=== PATIENT | male | born 1950 | race African-American/Black ===

== ENCOUNTER 2016-09-21 18:58 | Emergency (ER) | payer OTHER ==
[2016-09-21 19:05] VITALS: BP 140/79; PULSE 62; TEMP 97.8; BMI 25.7
--- NOTE | 2016-09-21 19:45 | PDOC ---
History of Present Illness - General Chief Complaint: Laceration Stated Complaint: CUT ON HAND Time Seen by Provider: 09/21/16 19:14 History Source: Patient Exam Limitations: No Limitations - History of Present Illness Initial Comments: 09/21/16 19:42 Was cutting watermelon, slipped and incised the lateral aspect of the left hand. Denies numbness or tingling to fingers, no other injury. Occurred: reports: just prior to arrival, this afternoon Pain Location: reports: upper extremity (left hand) Past History - Travel Traveled outside of the country in the last 30 days: No Close contact w/someone who was outside of country & ill: No - Past Medical History Allergies/Adverse Reactions: Allergies Allergy/AdvReac Type Severity Reaction Status Date / Time No Known Allergies Allergy Verified 09/21/16 19:01 Home Medications: Ambulatory Orders NK [No Known Home Medication] 09/21/16 Anemia: No Asthma: No Cancer: No Cardiac Disorders: No CVA: No COPD: No CHF: No Dementia: No Diabetes: No GI Disorders: No Disorders: No HTN: No Hypercholesterolemia: No Liver Disease: No Seizures: No Thyroid Disease: No - Psycho/Social/Smoking Cessation Hx Anxiety: No Suicidal Ideation: No Smoking Status: No Smoking History: Never smoked Have you smoked in the past 12 months: No Number of Cigarettes Smoked Daily: 0 Information on smoking cessation initiated: No Hx Alcohol Use: No Drug/Substance Use Hx: No Substance Use Type: None Hx Substance Use Treatment: No Trauma Specific PMHX - Complaint Specific PMHX Back Injury: No Neck Injury: No Review of Systems - Review of Systems Able to Perform ROS?: Yes Is the patient limited Urdu proficient: Yes Constitutional: Yes: See HPI. No: Symptoms Reported HEENTM: No: Symptoms Reported Musculoskeletal: Yes: Symptoms Reported, See HPI Integumentary: Yes: Symptoms Reported, See HPI (2 cm laceration to the lateral aspect of left distal hand at the MCP of that digit.). No: Lesions Neurological: No: Symptoms reported All Other Systems: Reviewed and Negative *Physical Exam - Vital Signs Last Vital Signs Temp Pulse Resp BP Pulse Ox 97.8 F 62 18 140/79 98 09/21/16 19:02 09/21/16 19:02 09/21/16 19:02 09/21/16 19:02 09/21/16 19:02 - Physical Exam General Appearance: Yes: Nourished, Appropriately Dressed, Apparent Distress, Mild Distress Neck: negative: Tender Respiratory/Chest: positive: Lungs Clear Extremity: positive: Normal Capillary Refill, Normal Inspection, Normal Range of Motion (2 cm laceration to the lateral aspect of left hand volar aspect/ proximal to the fifth MCP. Has full range of motion of fingers, strong flexion and extension with seventh sensation intact), Tender Integumentary: positive: Normal Color Neurologic: positive: oim consultant II-XII NML intact, Fully Oriented, Alert, Normal Mood/ Affect, Normal Response, Motor Strength 5/5 Procedures - Laceration/Wound Repair Left Hand Wound Length: to 2.5 cm Wound Explored: clean Wound's Depth, Shape: superficial, linear Irrigated w/ Saline: Yes Betadine Prep: Yes Anesthesia: 1% Lidocaine Wound Repaired With: Sutures Suture Size/Type: 5:0 Number of Sutures: 9 Layer Closure: No Sterile Dressing Applied: Yes Progress Note - Progress Note Progress Note: Hand laceration repaired *DC/Admit/Observation/Transfer Diagnosis at time of Disposition: Hand laceration Qualifiers: Encounter type: initial encounter Foreign body presence: unspecified Laterality : left Qualified Code(s): S61.412A - Laceration without foreign body of left hand, initial encounter - Discharge Dispostion Disposition: HOME Condition at time of disposition: Stable Admit: No - Referrals Referrals: Debbi Perkins MD [Primary Care Provider] - - Patient Instructions Printed Discharge Instructions: DI for Laceration Repair Additional Instructions: Rest, elevate, avoid strenuous activity or heavy lifting until sutures are removed Leave dressing on for the next 24 hours, Then may remove dressing gently and wash area with soap and water. Reapply bacitracin ointment and dressing daily for the next 5 days On day #6 keep the wound protected and cover as needed until sutures are removed allowing wound to start to dry May use Tylenol or Motrin for pain relief Suture removal in :10 -12 Days - Post Discharge Activity Work/School Note: Back to Work
== END 2016-09-21 20:14 | disposition home or self-care (01) ==
LOC: JERFT 18:58
PROC: 0HQ1XZZ Repair Face Skin, External Approach (ICD-10-PCS; principal; 2016-09-21)
DX: S61.412A Laceration without foreign body of left hand, initial encounter (principal); W26.0XXA Contact with knife, initial encounter; Y93.G1 Activity, food preparation and clean up; Y92.9 Unspecified place or not applicable
CPT/HCPCS: 99281-25

== ENCOUNTER 2018-09-21 19:39 | Emergency (ER) | payer BC, OTHER ==
[2018-09-21 20:10] VITALS: BP 128/73; PULSE 50; TEMP 97.8; BMI 26.0
--- NOTE | 2018-09-21 20:42 | PDOC ---
History of Present Illness - General Chief Complaint: Pain Stated Complaint: PAIN Time Seen by Provider: 09/21/18 20:27 - History of Present Illness Initial Comments: 09/21/18 20:29 CHIEF COMPLAINT: back pain HISTORY OF PRESENT ILLNESS: 68 yo M with hx of L knee arthroscopy presents to fast track with low back pain radiating to R leg x 1 week. Patient states that the pain is worse when standing. He reports having had pain for a few days last week "but then I stopped sleeping under the air conditioning, and it got a little bit better, but then today I mowed the lawn and afterwards it hurt more again." Denies any loss of bowel or bladder function and is fully ambulatory. No loss of sensation to b/l lower extremities. PAtient denies any urinary symptoms, denies chest pain, sob, abdominal pain. No recent travel or sick contacts. PAST MEDICAL HISTORY: Denies past medical history FAMILY HISTORY: Denies SOCIAL HISTORY: Denies tobacco, alcohol, illicit drug use. SURGICAL HISTORY: Denies ALLERGIES: No known drug allergies REVIEW OF SYSTEMS General/Constitutional: Denies fever or chills. Denies weakness, weight change. HEENT: Denies change in vision. Denies ear pain or discharge. Denies sore throat. Cardiovascular: Denies chest pain or shortness of breath. Respiratory: Denies cough, wheezing, or hemoptysis. Gastrointestinal: Denies nausea, vomiting, diarrhea or constipation. Denies rectal bleeding. Genitourinary: Denies dysuria, frequency, or change in urination. Musculoskeletal: Low back pain radiating to R leg. Denies joint or muscle swelling or pain. Denies neck or back pain. Skin and breasts: Denies rash or easy bruising. Neurologic: Denies headache, vertigo, loss of consciousness, or loss of sensation. PHYSICAL EXAM General Appearance: Well-appearing, appropriately dressed. No apparent distress , no intoxication. HEENT: EOMI, PERRLA, normal ENT inspection, normal voice, TMs normal, pharynx normal. No conjunctival pallor. No photophobia, scleral icterus. Neck: Supple. Trachea midline. No tenderness, rigidity, carotid bruit, stridor , lymphadenopathy, or thyromegaly. Respiratory/Chest: Lungs CTAB. No shortness of breath, chest tenderness, respiratory distress, accessory muscle use. No crackles, rales, rhonchi, stridor , wheezing, dullness Cardiovascular: RRR. S1, S2. No JVD, murmur, bradycardia, tachycardia. Vascular Pulses: Dorsalis-Pedis (R): 2+, Dorsalis-Pedis (L): 2+ Gastrointestinal/Abdominal: Normal bowel sounds. Abdomen soft, non-distended. No tenderness or rebound tenderness. No organomegaly, pulsatile mass, guarding , hernia, hepatomegaly, splenomegaly. Lymphatic: No adenopathy, tenderness. Musculoskeletal/Extremities: Full sensation to b/l lower extremities, no saddle anesthesia. No midline spine tenderness. Patient fully ambulatory. Normal inspection. FROM of all extremities, normal capillary refill. Pelvis Stable. No CVA tenderness. No tenderness to extremities, pedal edema, swelling, erythema or deformity. Integumentary: Appropriate color, dry, warm. No cyanosis, erythema, jaundice or rash Neurologic: acute coordinator II-XII intact. Fully oriented, alert. Appropriate mood/affect. Motor strength 5/5. No appreciable EOM palsy, facial droop or sensory deficit. Past History - Past Medical History Allergies/Adverse Reactions: Allergies Allergy/AdvReac Type Severity Reaction Status Date / Time No Known Allergies Allergy Verified 09/21/16 19:01 Home Medications: Ambulatory Orders Cyclobenzaprine HCl 10 mg PO HS #10 tablet 09/21/18 Anemia: No Asthma: No Cancer: No Cardiac Disorders: No CVA: No COPD: No CHF: No Dementia: No Diabetes: No GI Disorders: No Disorders: No HTN: No Hypercholesterolemia: No Liver Disease: No Seizures: No Thyroid Disease: No - Suicide/Smoking/Psychosocial Hx Smoking Status: No Smoking History: Never smoked Have you smoked in the past 12 months: No Number of Cigarettes Smoked Daily: 0 Hx Alcohol Use: No Drug/Substance Use Hx: No Substance Use Type: None Hx Substance Use Treatment: No Trauma Specific PMHX - Complaint Specific PMHX Back Injury: No Neck Injury: No *Physical Exam - Vital Signs Last Vital Signs Temp Pulse Resp BP Pulse Ox 97.8 F 50 L 20 128/73 100 09/21/18 20:05 09/21/18 20:05 09/21/18 20:05 09/21/18 20:05 09/21/18 20:05 Medical Decision Making - Medical Decision Making 09/21/18 20:42 68 yo M with hx of L knee arthroscopy presents to fast track with low back pain radiating to R leg x 1 week. -cyclobenzaprine po f/u with ortho Advised patient to take medication as prescribed and follow up with ortho within the next week. Advised patient of signs and symptoms for return to ED. Patient verbalized understanding and agrees to plan. *DC/Admit/Observation/Transfer Diagnosis at time of Disposition: Back pain with sciatica - Discharge Dispostion Disposition: HOME Condition at time of disposition: Stable Decision to Admit order: No - Prescriptions Prescriptions: Cyclobenzaprine HCl 10 mg PO HS #10 tablet - Referrals Referrals: Debbi Perkins MD [Primary Care Provider] - Santos Ramachandran DO [Staff Physician] - - Patient Instructions Printed Discharge Instructions: DI for Back Pain With Sciatica - Post Discharge Activity
[2018-09-21] MEDS ORDERED: CYCLOBENZAPRINE HCL 10 MG TABLET (FP) ONE (20:53)
[2018-09-21] MEDS ORDERED: CYCLOBENZAPRINE HCL 10 MG TABLET (FP) PO ONE (20:55)
== END 2018-09-21 20:56 | disposition home or self-care (01) ==
LOC: JERFT 19:39 → JER 19:39 → JERFT 20:56
DX: M54.41 Lumbago with sciatica, right side (principal)
CPT/HCPCS: 99281-25

== ENCOUNTER 2021-06-07 10:24 | Emergency (ER) | payer BC, OTHER ==
[2021-06-07 10:35] VITALS: BP 138/78; PULSE 56; TEMP 97.6; BMI 26.0
[2021-06-07] MEDS ORDERED: KETOROLAC TROMETHAMINE 30 MG/1 ML VIAL IM ONE (11:24)
== END 2021-06-07 12:05 | disposition home or self-care (01) ==
LOC: JERFT 10:24
DX: S61.011A Laceration without foreign body of right thumb without damage to nail, initial encounter (principal); W26.8XXA Contact with other sharp object(s), not elsewhere classified, initial encounter
CPT/HCPCS: 99283-25

== ENCOUNTER 2024-03-25 11:47 | Emergency (ER) | payer BC, OTHER ==
[2024-03-25 11:57] VITALS: BP 121/99; PULSE 66; RESP 18; TEMP 98.3; BMI 27.1
[2024-03-25] MEDS ORDERED: LIDOCAINE 5% TOPICAL PATCH ONE (13:05)
[2024-03-25] MEDS ORDERED: ACETAMINOPHEN 325 MG TABLET (FP) ONE (13:05)
[2024-03-25] MEDS: METHOCARBAMOL 500 MG TABLET PO ONE (13:06)
[2024-03-25] MEDS: LIDOCAINE 5% TOPICAL PATCH TP ONE (13:10)
[2024-03-25] MEDS: ACETAMINOPHEN 500 MG TABLET (FP) PO ONE (13:11)
[2024-03-25] MEDS ORDERED: LIDOCAINE PATCH REMOVAL MC SCH (22:00)
== END 2024-03-25 14:39 | disposition home or self-care (01) ==
LOC: JER 11:47
DX: M54.50 Low back pain, unspecified (principal); R10.9 Unspecified abdominal pain; X50.0XXA Overexertion from strenuous movement or load, initial encounter
CPT/HCPCS: 99283-25